=== PATIENT | male | born 2000 | race Caucasian/White ===

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

== ENCOUNTER 2019-04-04 20:04 | Emergency (ER) | payer OTHER ==
[~2019-04-04] VITALS: Ht 177.8 cm; Wt 69.0 kg
[~2019-04-04 20:04] MED LIST changes: +IBUP-1561 PO; -IBUP400T22 PO; +NEOM14.28 TP
[2019-04-04 20:23] VITALS: Ht 177.8 cm; Wt 69.0 kg
[2019-04-04] MEDS ORDERED: SOD CHLORIDE 0.9% 1,000 ML IV STA (21:53)
[2019-04-04] MEDS ORDERED: METOCLOPRAMIDE 10 MG INJ IV STA (21:53)
[2019-04-04] MEDS ORDERED: KETOROLAC 30 MG INJ IV STA (21:53)
[2019-04-04] MEDS ORDERED: KETOROLAC 15 MG INJ IV STA (22:12)
--- NOTE | 2019-04-04 22:24 | ERD ---
ER Documentation Chief Complaint Chief Complaint MIXON X 2 WEEKS HPI 18-year-old male with no reported past medical or surgical history resents with worsening occipital type headache. Patient reports gradual onset constant occipital headache associated with intermittent nausea, blurry vision, photophobia, itchiness. Patient reports he has previous history of concussions related to football injuries, with last concussion about 2 years ago. States he was seen at another ED yesterday for similar headache complaints and treated with"2 injections". Since that time he feels headaches not improved. Has been taking Advil without much improvement in his symptoms. He otherwise denies recent fall, trauma, sinus pain or pressure, chest pain, shortness of breath, dyspnea, recent URI type illness. At time of examination patient is alert and oriented in no acute distress with normal triage vital signs. ROS All systems reviewed and are negative except as per history of present illness. Medications Home Meds Active Scripts Ibuprofen* (Motrin*) 600 Mg Tab, 600 MG PO Q6, #30 TAB Prov:CLARE PERAZA PA-C 04/04/19 Diphenhydramine Hcl* (Benadryl*) 25 Mg Cap, 25 MG PO QHS, #30 CAP Prov:CLARE PERAZA PA-C 04/04/19 Meclizine Hcl* (Meclizine Hcl*) 25 Mg Tablet, 25 MG PO Q8H PRN for DIZZINESS for 7 Days, TAB Prov:CLARE PERAZA PA-C 04/04/19 Naproxen* (Naprosyn*) 500 Mg Tablet, 500 MG PO BID PRN for PAIN AND/OR INFLAMMATION, #30 TAB Prov:CLARE PERAZA PA-C 04/04/19 Neomy Sulf/Bacitrac Zn/Poly (NEOSPORIN ANTIBIOTIC OINTMENT) 14.2 Gm Oint...g., 14.2 GM TP BID, #1 TUB Prov:DARWIN XIAO PA-C 03/21/17 Acetaminophen* (Tylenol*) 325 Mg Tablet, 1 TAB PO Q6 PRN for PAIN AND OR ELEVATED TEMP, #20 TAB Prov:RIVKA AMADOR PA-C 03/09/17 Ibuprofen* (Motrin*) 400 Mg Tab, 400 MG PO Q6, #30 TAB Prov:LORENA WALLS PA-C 10/31/16 Hydrocodone Bit-Acetaminophen* ([place]*) 5-325 Mg Tab, 1 TAB PO Q6 PRN for PAIN, #12 TAB Prov:ERIC MENDOZA MD 11/24/15 Amoxicillin-Clavulanate K* (Augmentin*) 875 Mg Tab, 875 MG PO BID for 7 Days, TAB Prov:ERIC MENDOZA MD 11/24/15 Allergies Allergies: Coded Allergies: No Known Allergy (Unverified , 11/27/15) PMhx/Soc Medical and Surgical Hx: pt denies Surgical Hx History of Surgery: No Anesthesia Reaction: No Hx Neurological Disorder: Yes (MIGRAINES) Hx Respiratory Disorders: No Hx Cardiac Disorders: No Hx Psychiatric Problems: No Hx Miscellaneous Medical Probl: No Hx Alcohol Use: Yes (ETOH USE [id number] TODAY) Hx Substance Use: Yes (MARIJUANA) Hx Tobacco Use: Yes Smoking Status: Current every day smoker FmHx Family History: No diabetes, No coronary disease, No other Physical Exam Vitals Vital Signs Date Temp Pulse Resp B/P (MAP) Pulse Ox O2 O2 Flow FiO2 Time Delivery Rate 04/04/19 97.7 70 18 133/62 98 20:23 (85) Physical Exam I have reviewed the triage vital signs. Const: Well nourished, well developed, appears stated age Eyes: PERRL, no conjunctival injection HENT: NCAT, Neck supple without meningismus, nontender, no sinus pain or pressure, no lymphadenopathy, no signs of gross injury CV: RRR, Warm, well-perfused extremities RESP: CTAB, Unlabored respiratory effort GI: soft, non-tender, non-distended, no masses MSK: No gross deformities appreciated Skin: Warm, dry. No rashes Neuro: grossly non focal Psych: Appropriate mood and affect. Results 24 hrs Current Medications Medications Dose Sig/Emndy Start Time Status Last (Trade) Ordered Route PRN Stop Time Admin Dose Reason Admin Sodium 1,000 ml @ Q1H STAT 04/04/19 DC 04/04/19 Chloride 1,000 mls/hr IV 21:53 22:19 04/04/19 22:52 10 mg ONCE STAT 04/04/19 DC 04/04/19 Metoclopramid IV 21:53 22:19 e HCl 04/04/19 22:02 (Reglan) Ketorolac 15 mg ONCE STAT 04/04/19 DC Tromethamine IV 21:53 (Toradol) 04/04/19 22:13 Ketorolac 15 mg ONCE STAT 04/04/19 DC 04/04/19 Tromethamine IV 22:12 22:19 (Toradol) 04/04/19 22:13 Procedures/MDM This patient presents with a headache most consistent with primary type headache, occipital neuralgia. Differential diagnosis includes migraine versus tension type headache. No headache red flags. Neurologic exam without evidence of meningismus, focal neurologic findings. Presentation not consistent with acute intracranial bleed to include SAH (lack of risk factors, headache history). 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 Presentation not consistent with other acute, emergent causes of headache at this time. Plan to treat symptomatically with pain medication. No indication for imaging/LP at this time. ED course: 1 L normal saline, Toradol, will discharge with appropriate pain medications, Benadryl, meclizine, strict return precautions explained in detail to patient. DISPOSITION PLAN: We discussed follow up with the patient's primary care doctor within 24 to 48 hours. Patient counseled regarding my diagnostic impression and care plan. Prior to discharge all questions answered. Pt agrees with treatment plan and understands strict return precautions. Precautionary instructions provided including instructions to return to the ER if not improving or for any worsening or changing symptoms or concerns. Disclaimer: Inadvertent spelling and grammatical errors are likely due to EHR/dictation software use and do not reflect on the overall quality of patient care. Also, please note that the electronic time recorded on this note does not necessarily reflect the actual time of the patient encounter. Departure Diagnosis: Primary Impression: Headache Condition: Stable CLARE PERAZA PA-C Apr 04, 2019 22:24
[2019-04-04] MEDS ORDERED: BEN25 PO (23:38)
[2019-04-04] MEDS ORDERED: MECL-77 PO (23:38)
[2019-04-04] MEDS ORDERED: NAPR-985 PO (23:38)
[2019-04-04] MEDS ORDERED: IBUP-1542 PO (23:39)
[2019-04-04 23:53] VITALS: BP 128/78; PULSE 77; RESP 17
== END 2019-04-04 23:54 | disposition home or self-care (01) ==
LOC: FTE 20:04
DX: R51 Headache (principal); F17.210 Nicotine dependence, cigarettes, uncomplicated
CPT/HCPCS: 96374; 96375; J1885; J2765; J7030; Z7502